=== PATIENT | male | born 1960 | race Caucasian/White ===

== ENCOUNTER 2018-12-04 11:57 | Outpatient (CLI) | payer BC ==
--- NOTE | 2018-12-04 14:56 | CT ---
CT CHEST WITHOUT CONTRAST: Date: 12-04-18 Provided Clinical History: History of COPD. Current smoker. Screening for lung cancer. FINDINGS: No comparison. Vascular calcification including coronary calcium is demonstrated. The heart, pericardium, and great vessels are suboptimally evaluated in the absence of IV contrast material. There is a small amount of likely physiologic paracardial fluid. The lungs are free of significant opacity. The airway appears patient and of normal caliber. There is no evidence for thoracic lymph node enlargement. No pleural fluid or pneumothorax apparent. The visualized portions of the upper abdomen demonstrate a n unremarkable, unenhanced CT appearance. IMPRESSION: 1. No significant pulmonary parenchymal abnormality. 2. Vascular calcification including coronary calcium. 3. Lung RADS category 1 - negative. POS: [facility]
== END 2018-12-04 11:58 | disposition home or self-care (01) ==
LOC: CT 11:57
PROVIDERS: ATTEND Family Medicine
DX: F17.210 Nicotine dependence, cigarettes, uncomplicated (principal); I25.10 Atherosclerotic heart disease of native coronary artery without angina pectoris
CPT/HCPCS: G0297

== ENCOUNTER 2019-12-11 10:11 | Outpatient (CLI) | payer BC ==
--- NOTE | 2019-12-11 12:21 | CT ---
CT CHEST WITHOUT CONTRAST: Date: 12/11/2019 Axial tomograms obtained through chest following low dose screening protocol. Multiplanar reconstruct ions. INDICATION: Nicotine dependence. 45 year history of smoking. COPD. Comparison made to chest CT dated 12/04/2018. FINDINGS: Lungs show mild hyperexpansion. Mild interstitial prominence in the periphery of both lungs appears s table. Interstitial markings slightly more prominent in the posterior lung bases, stable in appearanc e. No pulmonary mass or nodule. No infiltrate or effusion. Mediastinum unremarkable. Review of soft tissues reveals increasing soft tissue density in the anterior mediastinum abutting th e anterior pericardium and the anterior chest wall when compared to the prior exam. This area of dens ity measures 1.5 cm thickness today in the axial plane, where as it previously measured approximately 0.8 cm. It may represent focal area of pericardial thickening, although the increase since prior exa m would warrant follow-up. Recommend repeat noncontrast CT chest in 6 months to assess stability of t his finding. IMPRESSION: Lung-RADS Category S. Other clinically significant findings. Recommend follow-up noncontrast chest CT in 6 months to assess stability of the anterior mediastinal density. POS: [facility]
== END 2019-12-11 10:12 | disposition home or self-care (01) ==
LOC: CT 10:11
PROVIDERS: ATTEND Family Medicine
DX: Z12.2 Encounter for screening for malignant neoplasm of respiratory organs (principal); F17.210 Nicotine dependence, cigarettes, uncomplicated
CPT/HCPCS: G0297

== ENCOUNTER 2020-03-05 08:36 | Day surgery (SDC) | payer BC ==
[2020-03-05 08:58] LABS: Prothrombin Time 13.5 SEC (12.0-14.7)
[2020-03-05 08:59] LABS: PTT 37.9 SEC (22.9-36.1)
[2020-03-05 09:43] VITALS: BP 177/98; TEMP 98.7
[2020-03-05 09:54] VITALS: BMI 23.4
--- NOTE | 2020-03-05 10:40 | CT ---
CT GUIDED RIGHT ILIAC BONE MARROW ASPIRATION AND BIOPSY: CLINICAL HISTORY: Persistent decreased white blood cell count. PROCEDURE: The procedure including the risks and complications were explained to the patient, and informed conse nt was obtained. The patient was placed on the CT scan table in the prone position. Conscious sedation for a total of 30 minutes was performed, administered by the radiology nurse, with the patie nt consistently monitored throughout the duration of the exam in stable condition. Noncontrasted CT images were obtained through the pelvis. An area was marked overlying the RIGHT christopher c bone, and the area was meticulously prepped and draped in usual sterile fashion. The skin and subcutaneous tissues were infiltrated with buffered 1% lidocaine for local anesthesia. After a small skin incision was made, an 11-gauge needle was advanced and positioning was confirmed w ith axial CT images. Approximately 8 milliliters of bone marrow aspirate was obtained. The needle was then further advanced, and a bone marrow biopsy was performed. The needle was removed, and hemost asis was achieved with direct pressure. The patient tolerated the procedure well and without immediate complication. The patient was transported to radiology nurses holding area for further leeanne toring prior to discharge. IMPRESSION: Technically successful percutaneous bone marrow aspiration and biopsy. Pathology results are pending.
== END 2020-03-05 11:30 | disposition home or self-care (01) ==
LOC: CT 08:36
PROVIDERS: ATTEND Internal Medicine Hematology & Oncology
PROC: 07DR3ZX Extraction of Iliac Bone Marrow, Percutaneous Approach, Diagnostic (ICD-10-PCS; principal; 2020-03-05)
PROC: 079T3ZX Drainage of Bone Marrow, Percutaneous Approach, Diagnostic (ICD-10-PCS; principal; 2020-03-05)
DX: D72.818 Other decreased white blood cell count (principal); F17.200 Nicotine dependence, unspecified, uncomplicated; I10 Essential (primary) hypertension; J44.9 Chronic obstructive pulmonary disease, unspecified
CPT/HCPCS: 20225; 36415; 77012; 85097; 85610; 85730; 88184; 88237; 88305; 88311; 88313; 88341; 88342

== ENCOUNTER 2022-05-31 13:08 | Outpatient (CLI) | payer OTHER | END 2022-05-31 13:09 | disposition home or self-care (01) | LOC: BICCT 13:08 | PROVIDERS: ATTEND Family Medicine | DX: Z12.2 Encounter for screening for malignant neoplasm of respiratory organs (principal); F17.210 Nicotine dependence, cigarettes, uncomplicated | CPT/HCPCS: 71271 ==

== ENCOUNTER 2023-05-14 12:10 | Inpatient (IN) | payer SELFPAY ==
[2023-05-14 12:34] LABS: #Monocytes 0.5 thou/uL (0.11-0.59); #Neutrophils 1.2 thou/uL (1.40-6.50); %Basophils 0.3 % (0.0-1.0); %Eosinophils 0.6 % (0.0-10.0); %Lymphocytes 50.1 % (21.0-51.0); Hemoglobin 15.2 g/dL (14.0-18.0); Mean Corpuscular HGB CONC 33.9 g/dL (32.0-36.0); Mean Corpuscular Hemoglobin 26.9 pg (27.0-31.0); Mean Corpuscular Volume 79.3 fl (78.0-98.0); Mean Platelet Volume 9.9 fL (7.4-10.4); Platelet Count 162 10x3/uL (130-400); RBC Distribution Width 14.4 % (11.5-14.5); Red Blood Cell (RBC) Count 5.65 mill/uL (4.70-6.10); White Blood Cell (WBC) Count 3.5 10x3/uL (4.8-10.8)
[2023-05-14 12:55] LABS: Albumin 4.1 g/dL (3.4-4.8); Anion Gap 13 mmol/L (10-20); BUN (Urea Nitrogen) 13 mg/dL (8.4-25.7); Bilirubin, Total 0.8 mg/dL (0.2-1.2); Calc. Creatinine Clearance 0 mL/min (70-130); Calcium 9.4 mg/dL (7.8-10.44); Carbon Dioxide 26 mmol/L (23-31); Chloride 99 mmol/L (98-107); Estimated GFR 81; Glucose 93 mg/dL (80-115); Potassium 4.2 mmol/L (3.5-5.1); Protein, Total 7.1 g/dL (5.8-8.1); Sodium 134 mmol/L (136-145)
[2023-05-14 12:56] LABS: ALT (SGPT) 13 U/L (8-55); AST (SGOT) 12 U/L (5-34); Alkaline Phosphatase 88 U/L (40-110)
[2023-05-14] MEDS ORDERED: DOPamine 400 MG/D5W 250 ML 250 ML ONE (16:21)
[2023-05-14] MEDS ORDERED: Melatonin 3 MG TAB PO PRN (16:21)
[2023-05-14] MEDS ORDERED: Ipratropium/Albuterol 3 ML NEB NEB PRN (16:24)
[2023-05-14] MEDS ORDERED: DOPamine 400 MG/D5W 250 ML 250 ML IVPB SCH ×2 (16:30)
[2023-05-14 16:33] VITALS: BMI 21.7
[2023-05-14] MEDS: Dextrose 5 % And 0.9 % NaCl 1,000 ML IV SCH (16:42)
[2023-05-14 17:23] LABS: Troponin I 0.022 ng/mL (< 0.028)
[2023-05-14 17:50] LABS: Thyroid Stimulating Hormone 1.2211 uIU/mL (0.35-4.94)
[2023-05-14 19:39] LABS: Troponin I Less than 0.010 ng/mL (< 0.028)
[2023-05-14 21:56] LABS: Anion Gap 12 mmol/L (10-20); BUN (Urea Nitrogen) 16 mg/dL (8.4-25.7); Calc. Creatinine Clearance 90 mL/min (70-130); Carbon Dioxide 24 mmol/L (23-31); Chloride 101 mmol/L (98-107); Estimated GFR 101; Glucose 110 mg/dL (80-115); Magnesium 2.1 mg/dL (1.6-2.6); Potassium 4.2 mmol/L (3.5-5.1); Sodium 133 mmol/L (136-145)
[2023-05-15] MEDS: Dextrose 5 % And 0.9 % NaCl 1,000 ML IV SCH (06:07)
[2023-05-15] MEDS: Nicotine 21 MG PATCH TD SCH ×2 (09:00→10:18)
[2023-05-15] MEDS ORDERED: Acetaminophen 325 MG TAB PO PRN (09:03)
[2023-05-15] MEDS: Famotidine/PF 20 mg/2ml Vial SLOW IVP SCH ×2 (10:18→20:02)
[2023-05-15] MEDS ORDERED: Amlodipine 5 MG TAB PO SCH (16:00)
[2023-05-15 17:56] VITALS: BP 172/96
[2023-05-16 03:56] LABS: #Monocytes 0.5 thou/uL (0.11-0.59); #Neutrophils 0.7 thou/uL (1.40-6.50); %Basophils 0.4 % (0.0-1.0); %Eosinophils 0.4 % (0.0-10.0); %Lymphocytes 58.3 % (21.0-51.0); %Monocytes 15.9 % (0.0-10.0); Hemoglobin 15.7 g/dL (14.0-18.0); Mean Corpuscular HGB CONC 33.9 g/dL (32.0-36.0); Mean Corpuscular Hemoglobin 26.9 pg (27.0-31.0); Mean Corpuscular Volume 79.3 fl (78.0-98.0); Mean Platelet Volume 9.9 fL (7.4-10.4); Platelet Count 147 10x3/uL (130-400); RBC Distribution Width 14.1 % (11.5-14.5); Red Blood Cell (RBC) Count 5.84 mill/uL (4.70-6.10); White Blood Cell (WBC) Count 2.8 10x3/uL (4.8-10.8)
[2023-05-16 04:36] LABS: Anion Gap 14 mmol/L (10-20); BUN (Urea Nitrogen) 10 mg/dL (8.4-25.7); Calc. Creatinine Clearance 91 mL/min (70-130); Calcium 9.1 mg/dL (7.8-10.44); Carbon Dioxide 23 mmol/L (23-31); Chloride 97 mmol/L (98-107); Estimated GFR 100; Glucose 88 mg/dL (80-115); Potassium 4.2 mmol/L (3.5-5.1); Sodium 130 mmol/L (136-145)
[2023-05-16 07:40] VITALS: TEMP 98.3
[2023-05-16] MEDS: Nicotine 21 MG PATCH TD SCH (07:46)
[2023-05-16] MEDS: Famotidine/PF 20 mg/2ml Vial SLOW IVP SCH (07:46)
[2023-05-16] MEDS ORDERED: Amlodipine 5 MG TAB PO SCH (09:00)
== END 2023-05-16 10:34 | disposition home or self-care (01) | DRG 309 ==
LOC: ERS 12:10 → IMCU/EMU 14:38
PROVIDERS: ADMIT Internal Medicine; ATTEND Internal Medicine
DX: R00.1 Bradycardia, unspecified (principal); E87.1 Hypo-osmolality and hyponatremia; R55 Syncope and collapse; J44.9 Chronic obstructive pulmonary disease, unspecified; I10 Essential (primary) hypertension; E78.5 Hyperlipidemia, unspecified; F32.A Depression, unspecified; F17.210 Nicotine dependence, cigarettes, uncomplicated; D72.818 Other decreased white blood cell count; M35.9 Systemic involvement of connective tissue, unspecified; Z79.51 Long term (current) use of inhaled steroids; Z82.49 Family history of ischemic heart disease and other diseases of the circulatory system; Z79.899 Other long term (current) drug therapy
CPT/HCPCS: 36415; 70450; 70486; 71045; 72125; 80048; 80053; 83735; 84439; 84443; 84484; 85025; 93005; 93306; 93880; J1265; J1650; J7042; S0028

== ENCOUNTER 2023-08-04 11:51 | Outpatient (CLI) | payer OTHER | END 2023-08-04 11:52 | disposition home or self-care (01) | LOC: BICMAMMO 11:51 | PROVIDERS: ATTEND Internal Medicine Hematology & Oncology | DX: Z13.820 Encounter for screening for osteoporosis (principal); D89.9 Disorder involving the immune mechanism, unspecified; M81.0 Age-related osteoporosis without current pathological fracture; Z79.52 Long term (current) use of systemic steroids | CPT/HCPCS: 77080 ==

== ENCOUNTER 2024-09-06 10:41 | Emergency (ER) | payer OTHER ==
[2024-09-06 12:03] LABS: ALT (SGPT) 35 U/L (8-55); AST (SGOT) 25 U/L (5-34); Albumin 3.6 g/dL (3.4-4.8); Alkaline Phosphatase 114 U/L (40-110); Anion Gap 11 mmol/L (10-20); BUN (Urea Nitrogen) 17 mg/dL (8.4-25.7); Bilirubin, Total 0.7 mg/dL (0.2-1.2); Calc. Creatinine Clearance 0 mL/min (70-130); Calcium 8.8 mg/dL (7.8-10.44); Carbon Dioxide 25 mmol/L (23-31); Chloride 102 mmol/L (98-107); Estimated GFR 99; Globulin 3.3 g/dL (2.4-3.5); Glucose 99 mg/dL (80-115); Lipase 19 U/L (8-78); Magnesium 2.2 mg/dL (1.6-2.6); Potassium 4.5 mmol/L (3.5-5.1); Protein, Total 6.9 g/dL (5.8-8.1); Sodium 133 mmol/L (136-145)
[2024-09-06 12:05] LABS: Troponin I Less than 0.010 ng/mL (< 0.028)
[2024-09-06 12:51] LABS: #Basophils Less than 0.03 10x3/uL (0.0-0.2); #Eosinophils Less than 0.03 10x3/uL (0.0-0.7); %Basophils 0.4 % (0.0-1.0); %Eosinophils 0.2 % (0.0-10.0); %Lymphocytes 42.6 % (21.0-51.0); %Monocytes 7.9 % (0.0-10.0); %Neutrophils 48.5 % (42.0-75.0); Hematocrit 46.4 % (42.0-52.0); Hemoglobin 14.9 g/dL (14.0-18.0); Mean Corpuscular HGB CONC 32.1 g/dL (32.0-36.0); Mean Corpuscular Hemoglobin 26.9 pg (27.0-31.0); Mean Corpuscular Volume 83.8 fL (78.0-98.0); Mean Platelet Volume 9.8 fL (7.4-10.4); Platelet Count 120 10x3/uL (130-400); RBC Distribution Width 14.9 % (11.5-14.5); Red Blood Cell (RBC) Count 5.54 mill/uL (4.70-6.10)
[2024-09-06 13:31] LABS: Microcytosis SLIGHT = 6-15 cells HPF (0-5); Ovalocytes SLIGHT = 2-5 cells HPF (0-1); Platelet Adequacy Comment Platelets Decreased
[2024-09-06 14:45] LABS: Bacteria/HPF 2+ HPF (None Seen); Bilirubin Negative (Negative); Blood, Urine 2+ (Negative); CAUTI Indications for Culture Fever or rigors; Clarity Clear (Clear); Glucose, Urine (Dipstick) Normal (Negative); Ketone, Urine Negative (Negative); Leukocyte 500 Leu/uL (Negative); Nitrite 2+ (Negative); Protein, Urine (Dipstick) Negative (Neg-Trace); RBC/HPF 21-50 HPF (0-3); Squamous Epithelial None Seen HPF (0-3); Urobilinogen Normal mg/dL (Less than 2)
[2024-09-06 14:46] LABS: Specific Gravity, Urine 1.057 (1.002-1.036); WBC/HPF 21-50 HPF (0-3)
[2024-09-06 14:56] LABS: Urine Culture Reflex Yes Yes
== END 2024-09-06 15:38 | disposition home or self-care (01) ==
LOC: ERS 10:41
DX: N39.0 Urinary tract infection, site not specified (principal); R53.83 Other fatigue; I10 Essential (primary) hypertension; J44.9 Chronic obstructive pulmonary disease, unspecified; F17.210 Nicotine dependence, cigarettes, uncomplicated
CPT/HCPCS: 71260; 74177; 80053; 81001; 83605; 83690; 83735; 83880; 84484; 85025; 87040; 87077; 87086; 87186; 93005

== ENCOUNTER 2024-10-02 22:28 | Inpatient (IN) | payer OTHER ==
[2024-10-02] MEDS ORDERED: Ondansetron PF 4 MG/2 ML Vial IVP PRN (23:47)
[2024-10-03 00:02] VITALS: BMI 18.8
[2024-10-03] MEDS ORDERED: Ipratropium/Albuterol 3 ML NEB EZPAP PRN (00:25)
[2024-10-03] MEDS: Nicotine 21 MG PATCH TD SCH (00:49)
[2024-10-03] MEDS: Gabapentin 300 MG CAP PO SCH ×2 (02:12→09:30)
[2024-10-03] MEDS: traZODone HCl 50 MG TAB PO SCH ×2 (02:13→21:18)
[2024-10-03 04:52] LABS: Hematocrit 34.7 % (42.0-52.0); Hemoglobin 11.6 g/dL (14.0-18.0); Mean Corpuscular HGB CONC 33.4 g/dL (32.0-36.0); Mean Corpuscular Hemoglobin 26.4 pg (27.0-31.0); Mean Corpuscular Volume 78.9 fL (78.0-98.0); Mean Platelet Volume 9.4 fL (7.4-10.4); Platelet Count 146 10x3/uL (130-400)
[2024-10-03 05:07] LABS: Anion Gap 10 mmol/L (10-20); BUN (Urea Nitrogen) 16 mg/dL (8.4-25.7); Calc. Creatinine Clearance 94 mL/min (70-130); Carbon Dioxide 24 mmol/L (23-31); Chloride 103 mmol/L (98-107); Estimated GFR 106; Glucose 118 mg/dL (80-115); Sodium 133 mmol/L (136-145)
[2024-10-03 05:36] LABS: Band 3 % (5-11); Eosinophils 3 % (0-10); Lymphocytes 59 % (21-51); Monocytes 18 % (0-10); Neutrophil 9 % (42-75); Ovalocytes SLIGHT = 2-5 cells HPF (0-1); Platelet Adequacy Comment Platelets Normal; Polychromasia MODERATE = 3-4 cells HPF (0-2); Reactive Lymphocytes 6 % (0-10)
[2024-10-03] MEDS: BuPROPion XL 150 MG ER.TAB PO SCH (09:30)
[2024-10-03] MEDS: Docusate 100 MG CAP PO SCH (09:30)
[2024-10-03] MEDS: Enoxaparin 30 MG (0.3 mL) SYRINGE SC SCH (09:30)
[2024-10-03] MEDS: Escitalopram Oxalate 20 mg Tablet PO SCH (09:30)
[2024-10-03] MEDS: FLU (Fluarix Triv) TS24-25(6MOS UP)/PF 45 MCG/0.5 ML Syringe IM ONE (11:34)
[2024-10-03] MEDS ORDERED: Nicotine 14 MG PATCH TD PRN (11:43)
[2024-10-03] MEDS: Acetaminophen 325 MG TAB PO PRN (15:26)
[2024-10-03] MEDS: Multivit, Therapeutic 1 TAB PO SCH (21:18)
[2024-10-03] MEDS: Cyanocobalamin (Vitamin B-12) 1,000 MCG TAB PO SCH (21:18)
[2024-10-03] MEDS: Folic Acid 1 MG TAB PO SCH (21:18)
[2024-10-03] MEDS: Senokot S 8.6-50 MG TAB PO SCH (21:19)
[2024-10-03] MEDS: cefTRIAXone\\ROCEPHIN 2 GM in Sodium Chloride 0.9% 100 ML IVPB SCH (21:49)
[2024-10-04 04:13] LABS: Hematocrit 39.3 % (42.0-52.0); Hemoglobin 13.1 g/dL (14.0-18.0); Mean Corpuscular HGB CONC 33.3 g/dL (32.0-36.0); Mean Corpuscular Hemoglobin 25.9 pg (27.0-31.0); Mean Corpuscular Volume 77.8 fL (78.0-98.0); Mean Platelet Volume 9.1 fL (7.4-10.4); Platelet Count 161 10x3/uL (130-400); RBC Distribution Width 14.8 % (11.5-14.5); Red Blood Cell (RBC) Count 5.05 mill/uL (4.70-6.10)
[2024-10-04 04:42] LABS: Anion Gap 14 mmol/L (10-20); BUN (Urea Nitrogen) 18 mg/dL (8.4-25.7); Calc. Creatinine Clearance 96 mL/min (70-130); Calcium 8.7 mg/dL (7.8-10.44); Carbon Dioxide 22 mmol/L (23-31); Chloride 98 mmol/L (98-107); Estimated GFR 107; Glucose 94 mg/dL (80-115); Magnesium 1.9 mg/dL (1.6-2.6); Potassium 4.6 mmol/L (3.5-5.1); Sodium 129 mmol/L (136-145)
[2024-10-04 06:36] LABS: Anisocytosis SLIGHT = 6-15 cells HPF (0-5); Band 1 % (5-11); Lymphocytes 65 % (21-51); Macrocytosis SLIGHT = 6-15 cells HPF (0-5); Monocytes 17 % (0-10); Neutrophil 8 % (42-75); Platelet Adequacy Comment Platelets Normal; Reactive Lymphocytes 9 % (0-10)
[2024-10-04] MEDS: Tamsulosin HCl 0.4 MG CAP PO SCH (09:15)
[2024-10-04] MEDS: Magnesium 2 GM/50 ML(in water) 2 GM in Premix 1 BAG IVPB SCH (09:16)
[2024-10-04] MEDS: Finasteride 5 MG TAB PO SCH (09:16)
[2024-10-04] MEDS: Ipratropium/Albuterol 3 ML NEB EZPAP SCH (13:54)
[2024-10-04] MEDS: Thiamine 100 MG TAB PO SCH (21:13)
[2024-10-04] MEDS: pyridOXINE 50 MG (B6) TAB PO SCH (21:13)
[2024-10-04] MEDS: hydrOXYzine 25 MG TAB PO PRN (21:16)
[2024-10-04] MEDS: Senokot S 8.6-50 MG TAB PO SCH (21:16)
[2024-10-05 04:13] LABS: Hematocrit 39.6 % (42.0-52.0); Hemoglobin 13.2 g/dL (14.0-18.0); Mean Corpuscular HGB CONC 33.3 g/dL (32.0-36.0); Mean Corpuscular Hemoglobin 26.2 pg (27.0-31.0); Mean Corpuscular Volume 78.7 fL (78.0-98.0); Mean Platelet Volume 9.1 fL (7.4-10.4); Platelet Count 163 10x3/uL (130-400); RBC Distribution Width 14.8 % (11.5-14.5); Red Blood Cell (RBC) Count 5.03 mill/uL (4.70-6.10)
[2024-10-05 04:28] LABS: Anion Gap 12 mmol/L (10-20); BUN (Urea Nitrogen) 18 mg/dL (8.4-25.7); Calc. Creatinine Clearance 86 mL/min (70-130); Calcium 8.5 mg/dL (7.8-10.44); Carbon Dioxide 22 mmol/L (23-31); Chloride 97 mmol/L (98-107); Estimated GFR 104; Glucose 108 mg/dL (80-115); Potassium 4.6 mmol/L (3.5-5.1); Sodium 126 mmol/L (136-145)
[2024-10-05 04:50] LABS: Band 1 % (5-11); Eosinophils 1 % (0-10); Large Platelets 5.9 % (0-5); Lymphocytes 59 % (21-51); Monocytes 22 % (0-10); Neutrophil 10 % (42-75); Platelet Adequacy Comment Platelets Normal; Reactive Lymphocytes 7 % (0-10)
[2024-10-05] MEDS: Cholecalciferol 1,000 UNITS (25 MCG) TAB PO SCH (08:12)
[2024-10-05 19:28] LABS: Potassium 4.9 mmol/L (3.5-5.1); Sodium 127 mmol/L (136-145)
[2024-10-05] MEDS ORDERED: Sodium Chloride 0.9% 500 ML IV SCH (21:00)
[2024-10-06 04:13] LABS: Hematocrit 40.8 % (42.0-52.0); Hemoglobin 13.7 g/dL (14.0-18.0); Mean Corpuscular HGB CONC 33.6 g/dL (32.0-36.0); Mean Corpuscular Volume 77.4 fL (78.0-98.0); Mean Platelet Volume 8.7 fL (7.4-10.4); Platelet Count 166 10x3/uL (130-400); RBC Distribution Width 14.6 % (11.5-14.5); Red Blood Cell (RBC) Count 5.27 mill/uL (4.70-6.10)
[2024-10-06 04:19] LABS: Anion Gap 11 mmol/L (10-20); BUN (Urea Nitrogen) 18 mg/dL (8.4-25.7); Calc. Creatinine Clearance 96 mL/min (70-130); Calcium 8.7 mg/dL (7.8-10.44); Carbon Dioxide 24 mmol/L (23-31); Chloride 97 mmol/L (98-107); Estimated GFR 107; Glucose 111 mg/dL (80-115); Potassium 4.2 mmol/L (3.5-5.1); Sodium 128 mmol/L (136-145)
[2024-10-06 04:34] LABS: Band 1 % (5-11); Eosinophils 2 % (0-10); Lymphocytes 61 % (21-51); Microcytosis SLIGHT = 6-15 cells HPF (0-5); Monocytes 24 % (0-10); Neutrophil 1 % (42-75); Platelet Adequacy Comment Platelets Normal; Polychromasia SLIGHT = 2-3 cells HPF (0-2); Reactive Lymphocytes 11 % (0-10)
[2024-10-06 10:59] LABS: Critical Call Chem-Lactate NUR.LL
[2024-10-06] MEDS: Tolvaptan 15 MG TAB PO SCH (13:06)
[2024-10-06 20:15] LABS: Potassium 4.8 mmol/L (3.5-5.1); Sodium 129 mmol/L (136-145)
[2024-10-07 04:10] LABS: Hematocrit 39.7 % (42.0-52.0); Hemoglobin 13.4 g/dL (14.0-18.0); Mean Corpuscular HGB CONC 33.8 g/dL (32.0-36.0); Mean Corpuscular Hemoglobin 26.3 pg (27.0-31.0); Mean Corpuscular Volume 77.8 fL (78.0-98.0); Mean Platelet Volume 9.3 fL (7.4-10.4); Platelet Count 186 10x3/uL (130-400); RBC Distribution Width 14.7 % (11.5-14.5)
[2024-10-07 04:19] LABS: ALT (SGPT) 30 U/L (8-55); AST (SGOT) 34 U/L (5-34); Albumin 2.6 g/dL (3.4-4.8); Alkaline Phosphatase 99 U/L (40-110); Bilirubin, Direct 0.1 mg/dL (0.1-0.3); Bilirubin, Total 0.3 mg/dL (0.2-1.2); Protein, Total 6.7 g/dL (5.8-8.1)
[2024-10-07 04:20] LABS: Anion Gap 13 mmol/L (10-20); BUN (Urea Nitrogen) 16 mg/dL (8.4-25.7); Calc. Creatinine Clearance 86 mL/min (70-130); Carbon Dioxide 23 mmol/L (23-31); Chloride 97 mmol/L (98-107); Estimated GFR 104; Glucose 123 mg/dL (80-115); Potassium 4.4 mmol/L (3.5-5.1); Sodium 129 mmol/L (136-145)
[2024-10-07 04:54] LABS: Anisocytosis SLIGHT = 6-15 cells HPF (0-5); Band 1 % (5-11); Elliptocytes SLIGHT = 2-5 cells HPF (0-1); Hypochromia SLIGHT = 6-15 cells HPF (0-5); Lymphocytes 35 % (21-51); Monocytes 20 % (0-10); Neutrophil 4 % (42-75); Platelet Adequacy Comment Platelets Normal; Polychromasia SLIGHT = 2-3 cells HPF (0-2); Reactive Lymphocytes 39 % (0-10)
[2024-10-07] MEDS ORDERED: Ipratropium/Albuterol 3 ML NEB NEB PRN (11:04)
[2024-10-07] MEDS ORDERED: Ipratropium/Albuterol 3 ML NEB EZPAP SCH (12:30)
[2024-10-07] MEDS: Ipratropium/Albuterol 3 ML NEB NEB SCH (13:30)
[2024-10-07] MEDS ORDERED: Ipratropium/Albuterol 3 ML NEB NEB SCH (14:30)
[2024-10-07] MEDS: Tolvaptan 15 MG TAB PO SCH (15:29)
[2024-10-08 04:57] LABS: Hematocrit 38.7 % (42.0-52.0); Hemoglobin 12.7 g/dL (14.0-18.0); Mean Corpuscular HGB CONC 32.8 g/dL (32.0-36.0); Mean Corpuscular Hemoglobin 25.7 pg (27.0-31.0); Mean Corpuscular Volume 78.2 fL (78.0-98.0); Mean Platelet Volume 9.5 fL (7.4-10.4); Platelet Count 179 10x3/uL (130-400); RBC Distribution Width 14.7 % (11.5-14.5); Red Blood Cell (RBC) Count 4.95 mill/uL (4.70-6.10)
[2024-10-08 05:07] LABS: Anion Gap 11 mmol/L (10-20); BUN (Urea Nitrogen) 19 mg/dL (8.4-25.7); Calc. Creatinine Clearance 93 mL/min (70-130); Calcium 8.9 mg/dL (7.8-10.44); Carbon Dioxide 25 mmol/L (23-31); Chloride 95 mmol/L (98-107); Estimated GFR 106; Glucose 103 mg/dL (80-115); Magnesium 1.9 mg/dL (1.6-2.6); Potassium 4.4 mmol/L (3.5-5.1); Sodium 127 mmol/L (136-145)
[2024-10-08 05:24] LABS: Band 4 % (5-11); Eosinophils 2 % (0-10); Lymphocytes 44 % (21-51); Monocytes 18 % (0-10); Neutrophil 4 % (42-75); Platelet Adequacy Comment Platelets Normal; Polychromasia SLIGHT = 2-3 cells HPF (0-2); Reactive Lymphocytes 28 % (0-10)
[2024-10-08] MEDS: Sodium Chloride 1 GM TAB PO SCH (08:50)
[2024-10-08] MEDS: Magnesium 2 GM/50 ML(in water) 2 GM in Premix 1 BAG IVPB SCH (12:13)
[2024-10-08] MEDS: dilTIAZem 30 MG TAB PO SCH ×2 (17:45→21:31)
[2024-10-09 04:12] LABS: Anion Gap 12 mmol/L (10-20); BUN (Urea Nitrogen) 21 mg/dL (8.4-25.7); Calc. Creatinine Clearance 92 mL/min (70-130); Calcium 8.6 mg/dL (7.8-10.44); Carbon Dioxide 25 mmol/L (23-31); Chloride 99 mmol/L (98-107); Estimated GFR 107; Glucose 101 mg/dL (80-115); Potassium 4.2 mmol/L (3.5-5.1); Sodium 132 mmol/L (136-145)
[2024-10-09 04:32] LABS: Large Platelets 7.8 % (0-5); Lymphocytes 63 % (21-51); Microcytosis SLIGHT = 6-15 cells HPF (0-5); Monocytes 19 % (0-10); Neutrophil 3 % (42-75); Platelet Adequacy Comment Platelets Normal; Polychromasia MODERATE = 3-4 cells HPF (0-2); Reactive Lymphocytes 16 % (0-10)
[2024-10-09 04:36] LABS: Hematocrit 38.4 % (42.0-52.0); Hemoglobin 12.7 g/dL (14.0-18.0); Mean Corpuscular HGB CONC 33.1 g/dL (32.0-36.0); Mean Corpuscular Volume 78.7 fL (78.0-98.0); Mean Platelet Volume 8.7 fL (7.4-10.4); Platelet Count 158 10x3/uL (130-400); RBC Distribution Width 14.7 % (11.5-14.5); Red Blood Cell (RBC) Count 4.88 mill/uL (4.70-6.10)
[2024-10-09] MEDS ORDERED: Piperacillin/Tazobactam 3.375 GM in Sodium Chloride 0.9% 100 ML IVPB SCH (13:00)
[2024-10-09] MEDS: Morphine 2 MG/ML VIAL SLOW IVP SCH (13:03)
[2024-10-09 14:44] LABS: PTT 36.5 sec (22.9-36.1)
[2024-10-10] MEDS ORDERED: Piperacillin/Tazobactam 3.375 GM in Sodium Chloride 0.9% 100 ML IVPB SCH (06:00)
[2024-10-10] MEDS ORDERED: SUGAMMADEX SODIUM 200 MG/2 ML VIAL ONE (09:11)
[2024-10-10] MEDS ORDERED: Rocuronium Bromide 10 MG/ML (10ML VIAL) ONE (09:11)
[2024-10-10] MEDS ORDERED: PHENYLEPHRINE-NS 100 MCG/ML 10 ML SYRINGE ONE (09:11)
[2024-10-10] MEDS ORDERED: Metoprolol Tartrate 5 MG (5 mL) VIAL ONE (09:11)
[2024-10-10] MEDS ORDERED: Hyoscyamine SL 0.125 MG TAB ONE ×2 (09:11→20:23)
[2024-10-10] MEDS ORDERED: Ondansetron PF 4 MG/2 ML Vial ONE (09:11)
[2024-10-10] MEDS ORDERED: Piperacillin/Tazobactam 3.375 GM VIAL ONE (09:11)
[2024-10-10] MEDS ORDERED: PROPOFOL 200 MG/20 ML VIAL ONE (09:11)
[2024-10-10] MEDS ORDERED: fentaNYL PF 100 MCG/2 ML SYRINGE ONE ×2 (09:11)
[2024-10-10] MEDS ORDERED: Lidocaine 2% PF 5 ML VIAL ONE (09:11)
[2024-10-10] MEDS ORDERED: Dexamethasone 4 mg/ml Vial ONE (09:11)
[2024-10-10] MEDS ORDERED: Docusate 100 MG CAP ONE (20:23)
[2024-10-10] MEDS ORDERED: dilTIAZem 30 MG TAB ONE (20:23)
[2024-10-10] MEDS ORDERED: Sodium Chloride 1 GM TAB ONE (20:23)
[2024-10-10] MEDS ORDERED: Multivit, Therapeutic 1 TAB ONE (20:23)
[2024-10-10] MEDS ORDERED: Folic Acid 1 MG TAB ONE (20:23)
[2024-10-10] MEDS ORDERED: Famotidine/PF 20 mg/2ml Vial ONE (20:23)
[2024-10-10] MEDS ORDERED: Thiamine 100 MG TAB ONE (20:23)
[2024-10-10] MEDS ORDERED: pyridOXINE 50 MG (B6) TAB ONE (20:23)
[2024-10-10] MEDS ORDERED: traZODone HCl 50 MG TAB ONE (20:23)
[2024-10-10] MEDS ORDERED: Cyanocobalamin (Vitamin B-12) 1,000 MCG TAB ONE (20:23)
[2024-10-10] MEDS ORDERED: Phenazopyridine HCl 100 MG TAB ONE (20:23)
[2024-10-10] MEDS ORDERED: Gabapentin 300 MG CAP ONE (20:23)
[2024-10-10] MEDS ORDERED: cefTRIAXone (ROCEPHIN) 2 GM VIAL ONE (23:00)
[2024-10-11] MEDS ORDERED: Senokot S 8.6-50 MG TAB ONE ×2 (09:30→20:10)
[2024-10-11] MEDS ORDERED: dilTIAZem 30 MG TAB ONE ×2 (09:30→20:10)
[2024-10-11] MEDS ORDERED: Gabapentin 300 MG CAP ONE ×2 (09:30→20:10)
[2024-10-11] MEDS ORDERED: Finasteride 5 MG TAB ONE (09:30)
[2024-10-11] MEDS ORDERED: Sodium Chloride 1 GM TAB ONE ×2 (09:30→20:10)
[2024-10-11] MEDS ORDERED: Tamsulosin HCl 0.4 MG CAP ONE (09:30)
[2024-10-11] MEDS ORDERED: Cholecalciferol 1,000 UNITS (25 MCG) TAB ONE ×2 (09:30→20:10)
[2024-10-11] MEDS: Docusate 100 MG CAP ONE ×3 (20:08→20:10)
[2024-10-11] MEDS: Famotidine/PF 20 mg/2ml Vial ONE ×3 (20:08→20:10)
[2024-10-11] MEDS: Phenazopyridine HCl 100 MG TAB ONE ×4 (20:09→20:10)
[2024-10-11] MEDS: Hyoscyamine SL 0.125 MG TAB ONE ×4 (20:09→21:30)
[2024-10-11] MEDS: Polyethylene Glycol 3350 17 GM Packet ONE (20:10)
[2024-10-11] MEDS ORDERED: pyridOXINE 50 MG (B6) TAB ONE (20:10)
[2024-10-11] MEDS ORDERED: Multivit, Therapeutic 1 TAB ONE (20:10)
[2024-10-11] MEDS ORDERED: Cyanocobalamin (Vitamin B-12) 1,000 MCG TAB ONE (20:10)
[2024-10-11] MEDS ORDERED: Folic Acid 1 MG TAB ONE (20:10)
[2024-10-11] MEDS ORDERED: Thiamine 100 MG TAB ONE (20:10)
[2024-10-11] MEDS ORDERED: traZODone HCl 50 MG TAB ONE (20:10)
[2024-10-12 08:38] LABS: Hematocrit 33.3 % (42.0-52.0); Hemoglobin 10.7 g/dL (14.0-18.0); Mean Corpuscular HGB CONC 32.1 g/dL (32.0-36.0); Mean Corpuscular Hemoglobin 25.7 pg (27.0-31.0); Mean Platelet Volume 8.8 fL (7.4-10.4); Platelet Count 192 10x3/uL (130-400); RBC Distribution Width 14.6 % (11.5-14.5); Red Blood Cell (RBC) Count 4.16 mill/uL (4.70-6.10)
[2024-10-12 09:01] LABS: Anion Gap 10 mmol/L (10-20); BUN (Urea Nitrogen) 15 mg/dL (8.4-25.7); Calc. Creatinine Clearance 101 mL/min (70-130); Calcium 8.1 mg/dL (7.8-10.44); Carbon Dioxide 23 mmol/L (23-31); Chloride 99 mmol/L (98-107); Estimated GFR 110; Glucose 91 mg/dL (80-115); Magnesium 1.8 mg/dL (1.6-2.6); Potassium 4.2 mmol/L (3.5-5.1); Sodium 128 mmol/L (136-145)
[2024-10-12 09:27] LABS: Band 2 % (5-11); Eosinophils 1 % (0-10); Large Platelets 5.8 % (0-5); Lymphocytes 64 % (21-51); Metamyelocyte 1 % (0-0); Monocytes 19 % (0-10); Neutrophil 9 % (42-75); Ovalocytes SLIGHT = 2-5 cells HPF (0-1); Plasma Cells 1 % (0-0); Platelet Adequacy Comment Platelets Normal; Polychromasia SLIGHT = 2-3 cells HPF (0-2); Reactive Lymphocytes 2 % (0-10)
[2024-10-12] MEDS: Famotidine/PF 20 mg/2ml Vial ONE ×2 (09:31→20:42)
[2024-10-12] MEDS: Polyethylene Glycol 3350 17 GM Packet ONE (09:31)
[2024-10-12] MEDS: Phenazopyridine HCl 100 MG TAB ONE ×3 (09:31→20:42)
[2024-10-12] MEDS: Docusate 100 MG CAP ONE ×2 (09:32→20:41)
[2024-10-12] MEDS: Hyoscyamine SL 0.125 MG TAB ONE (13:51)
[2024-10-12] MEDS: Magnesium 2 GM/50 ML(in water) 2 GM in Premix 1 BAG IVPB SCH (13:52)
[2024-10-13 04:23] LABS: Anion Gap 12 mmol/L (10-20); BUN (Urea Nitrogen) 16 mg/dL (8.4-25.7); Calc. Creatinine Clearance 107 mL/min (70-130); Calcium 8.2 mg/dL (7.8-10.44); Carbon Dioxide 23 mmol/L (23-31); Chloride 100 mmol/L (98-107); Estimated GFR 111; Glucose 95 mg/dL (80-115); Potassium 4.2 mmol/L (3.5-5.1); Sodium 131 mmol/L (136-145)
[2024-10-13 04:31] LABS: Hematocrit 33.2 % (42.0-52.0); Mean Corpuscular HGB CONC 33.1 g/dL (32.0-36.0); Mean Corpuscular Hemoglobin 26.2 pg (27.0-31.0); Mean Platelet Volume 8.9 fL (7.4-10.4); Platelet Count 188 10x3/uL (130-400); RBC Distribution Width 14.7 % (11.5-14.5)
[2024-10-13 06:56] LABS: Band 7 % (5-11); Eosinophils 4 % (0-10); Large Platelets 2.8 % (0-5); Lymphocytes 57 % (21-51); Monocytes 15 % (0-10); Neutrophil 10 % (42-75); Nucleated RBC (Manual Ct) 2 % (0); Platelet Adequacy Comment Platelets Normal; Polychromasia SLIGHT = 2-3 cells HPF (0-2); Reactive Lymphocytes 7 % (0-10); Smudge Cells 15.9 %
[2024-10-13] MEDS: Polyethylene Glycol 3350 17 GM Packet ONE (10:34)
[2024-10-13] MEDS: Docusate 100 MG CAP ONE ×2 (10:34→21:11)
[2024-10-13] MEDS: Phenazopyridine HCl 100 MG TAB ONE ×3 (10:35→21:11)
[2024-10-13] MEDS: Famotidine/PF 20 mg/2ml Vial ONE ×2 (10:35→21:11)
[2024-10-13] MEDS: Hyoscyamine SL 0.125 MG TAB ONE (14:18)
[2024-10-13] MEDS: Doxycycline 100 MG CAP PO SCH (20:36)
[2024-10-14] MEDS: Docusate 100 MG CAP ONE ×2 (08:29→20:24)
[2024-10-14] MEDS: Polyethylene Glycol 3350 17 GM Packet ONE (08:30)
[2024-10-14] MEDS: Phenazopyridine HCl 100 MG TAB ONE ×2 (08:30→20:24)
[2024-10-14] MEDS: Famotidine/PF 20 mg/2ml Vial ONE ×2 (08:30→20:24)
[2024-10-14] MEDS ORDERED: Ipratropium/Albuterol 3 ML NEB NEB PRN (11:02)
[2024-10-14 11:38] LABS: Hematocrit 34.5 % (42.0-52.0); Hemoglobin 11.1 g/dL (14.0-18.0); Mean Corpuscular HGB CONC 32.2 g/dL (32.0-36.0); Mean Corpuscular Hemoglobin 25.8 pg (27.0-31.0); Mean Corpuscular Volume 80.2 fL (78.0-98.0); Mean Platelet Volume 8.9 fL (7.4-10.4); Platelet Count 208 10x3/uL (130-400); RBC Distribution Width 14.9 % (11.5-14.5)
[2024-10-14 11:51] LABS: ALT (SGPT) 71 U/L (8-55); AST (SGOT) 62 U/L (5-34); Albumin 2.1 g/dL (3.4-4.8); Alkaline Phosphatase 147 U/L (40-110); Anion Gap 13 mmol/L (10-20); BUN (Urea Nitrogen) 21 mg/dL (8.4-25.7); Bilirubin, Total 0.3 mg/dL (0.2-1.2); Calc. Creatinine Clearance 108 mL/min (70-130); Calcium 8.4 mg/dL (7.8-10.44); Carbon Dioxide 24 mmol/L (23-31); Chloride 99 mmol/L (98-107); Estimated GFR 112; Globulin 4.1 g/dL (2.4-3.5); Glucose 103 mg/dL (80-115); Magnesium 1.9 mg/dL (1.6-2.6); Potassium 4.7 mmol/L (3.5-5.1); Protein, Total 6.2 g/dL (5.8-8.1); Sodium 131 mmol/L (136-145)
[2024-10-14 12:32] LABS: Band 5 % (5-11); Eosinophils 1 % (0-10); Large Platelets 8.7 % (0-5); Lymphocytes 62 % (21-51); Monocytes 16 % (0-10); Neutrophil 16 % (42-75); Platelet Adequacy Comment Platelets Normal; Polychromasia SLIGHT = 2-3 cells HPF (0-2); Reactive Lymphocytes 1 % (0-10)
[2024-10-14] MEDS: Cefepime 2 GM in Sodium Chloride 0.9% 100 ML IVPB SCH (15:13)
[2024-10-14] MEDS: Sodium Chloride 1 GM TAB PO SCH (15:14)
[2024-10-14 15:34] LABS: Influenza A by NAA Not Detected (NotDetected); Influenza B by NAA Not Detected (NotDetected); RSV by NAA Not Detected (NotDetected); SARS-CoV-2 NAA Rapid Test Not Detected (NotDetected)
[2024-10-15 05:53] LABS: Hematocrit 35.3 % (42.0-52.0); Hemoglobin 11.5 g/dL (14.0-18.0); Mean Corpuscular HGB CONC 32.6 g/dL (32.0-36.0); Mean Corpuscular Hemoglobin 25.5 pg (27.0-31.0); Mean Corpuscular Volume 78.3 fL (78.0-98.0); Mean Platelet Volume 9.3 fL (7.4-10.4); Platelet Count 231 10x3/uL (130-400); RBC Distribution Width 14.7 % (11.5-14.5); Red Blood Cell (RBC) Count 4.51 mill/uL (4.70-6.10)
[2024-10-15 05:58] LABS: ALT (SGPT) 63 U/L (8-55); AST (SGOT) 48 U/L (5-34); Albumin 2.2 g/dL (3.4-4.8); Alkaline Phosphatase 150 U/L (40-110); Anion Gap 11 mmol/L (10-20); BUN (Urea Nitrogen) 19 mg/dL (8.4-25.7); Bilirubin, Direct 0.2 mg/dL (0.1-0.3); Bilirubin, Total 0.4 mg/dL (0.2-1.2); Calc. Creatinine Clearance 108 mL/min (70-130); Calcium 8.3 mg/dL (7.8-10.44); Carbon Dioxide 23 mmol/L (23-31); Chloride 99 mmol/L (98-107); Estimated GFR 112; Glucose 101 mg/dL (80-115); Lipase 23 U/L (8-78); Magnesium 1.9 mg/dL (1.6-2.6); Potassium 4.4 mmol/L (3.5-5.1); Protein, Total 6.2 g/dL (5.8-8.1); Sodium 129 mmol/L (136-145)
[2024-10-15 06:59] LABS: Anisocytosis SLIGHT = 6-15 cells HPF (0-5); Band 10 % (5-11); Lymphocytes 47 % (21-51); Macrocytosis SLIGHT = 6-15 cells HPF (0-5); Monocytes 25 % (0-10); Neutrophil 6 % (42-75); Platelet Adequacy Comment Platelets Normal; Polychromasia SLIGHT = 2-3 cells HPF (0-2); Reactive Lymphocytes 12 % (0-10)
[2024-10-15] MEDS: TOLVAPTAN 30 MG TAB PO SCH (11:01)
[2024-10-15] MEDS: Phenazopyridine HCl 100 MG TAB ONE (14:47)
[2024-10-15 19:26] LABS: Anion Gap 11 mmol/L (10-20); BUN (Urea Nitrogen) 17 mg/dL (8.4-25.7); Calc. Creatinine Clearance 94 mL/min (70-130); Calcium 8.8 mg/dL (7.8-10.44); Carbon Dioxide 24 mmol/L (23-31); Chloride 100 mmol/L (98-107); Estimated GFR 107; Glucose 233 mg/dL (80-115); Sodium 131 mmol/L (136-145)
[2024-10-16 06:28] LABS: Hematocrit 37.7 % (42.0-52.0); Hemoglobin 12.2 g/dL (14.0-18.0); Mean Corpuscular HGB CONC 32.4 g/dL (32.0-36.0); Mean Corpuscular Hemoglobin 25.6 pg (27.0-31.0); Mean Corpuscular Volume 79.2 fL (78.0-98.0); Mean Platelet Volume 8.9 fL (7.4-10.4); Platelet Count 234 10x3/uL (130-400); RBC Distribution Width 14.6 % (11.5-14.5); Red Blood Cell (RBC) Count 4.76 mill/uL (4.70-6.10)
[2024-10-16 06:42] LABS: ALT (SGPT) 60 U/L (8-55); AST (SGOT) 48 U/L (5-34); Albumin 2.3 g/dL (3.4-4.8); Alkaline Phosphatase 144 U/L (40-110); Anion Gap 11 mmol/L (10-20); BUN (Urea Nitrogen) 16 mg/dL (8.4-25.7); Bilirubin, Total 0.4 mg/dL (0.2-1.2); Calc. Creatinine Clearance 94 mL/min (70-130); Calcium 9.1 mg/dL (7.8-10.44); Carbon Dioxide 23 mmol/L (23-31); Chloride 99 mmol/L (98-107); Estimated GFR 107; Globulin 4.3 g/dL (2.4-3.5); Glucose 107 mg/dL (80-115); Magnesium 2.1 mg/dL (1.6-2.6); Potassium 4.2 mmol/L (3.5-5.1); Protein, Total 6.6 g/dL (5.8-8.1); Sodium 129 mmol/L (136-145)
[2024-10-16 08:21] LABS: Band 2 % (5-11); Eosinophils 1 % (0-10); Large Platelets 3.9 % (0-5); Lymphocytes 51 % (21-51); Microcytosis SLIGHT = 6-15 cells HPF (0-5); Monocytes 27 % (0-10); Neutrophil 17 % (42-75); Platelet Adequacy Comment Platelets Normal; Polychromasia SLIGHT = 2-3 cells HPF (0-2); Reactive Lymphocytes 2 % (0-10)
[2024-10-16] MEDS: Famotidine/PF 20 mg/2ml Vial ONE (11:06)
[2024-10-16] MEDS: Phenazopyridine HCl 100 MG TAB ONE (11:06)
[2024-10-16] MEDS: Docusate 100 MG CAP ONE (11:06)
[2024-10-16] MEDS: Polyethylene Glycol 3350 17 GM Packet ONE (11:07)
[2024-10-16 12:41] VITALS: BMI 18.2
[2024-10-16] MEDS: Sodium Chloride 0.9% 1,000 ML IV SCH (15:00)
[2024-10-16 19:03] LABS: Anion Gap 8 mmol/L (10-20); BUN (Urea Nitrogen) 20 mg/dL (8.4-25.7); Calc. Creatinine Clearance 100 mL/min (70-130); Calcium 8.3 mg/dL (7.8-10.44); Carbon Dioxide 25 mmol/L (23-31); Chloride 97 mmol/L (98-107); Estimated GFR 110; Glucose 128 mg/dL (80-115); Potassium 4.3 mmol/L (3.5-5.1); Sodium 126 mmol/L (136-145)
[2024-10-16] MEDS: Mirtazapine 15 MG TAB PO SCH (20:43)
[2024-10-17] MEDS: TOLVAPTAN 30 MG TAB PO SCH (00:45)
[2024-10-17 06:10] LABS: ALT (SGPT) 62 U/L (8-55); AST (SGOT) 51 U/L (5-34); Albumin 2.1 g/dL (3.4-4.8); Alkaline Phosphatase 140 U/L (40-110); Anion Gap 10 mmol/L (10-20); BUN (Urea Nitrogen) 17 mg/dL (8.4-25.7); Bilirubin, Total 0.4 mg/dL (0.2-1.2); Calc. Creatinine Clearance 102 mL/min (70-130); Calcium 8.4 mg/dL (7.8-10.44); Carbon Dioxide 23 mmol/L (23-31); Chloride 99 mmol/L (98-107); Estimated GFR 110; Globulin 4.1 g/dL (2.4-3.5); Glucose 98 mg/dL (80-115); Magnesium 1.8 mg/dL (1.6-2.6); Potassium 4.2 mmol/L (3.5-5.1); Protein, Total 6.2 g/dL (5.8-8.1); Sodium 128 mmol/L (136-145)
[2024-10-17 06:26] LABS: Hematocrit 34.5 % (42.0-52.0); Hemoglobin 11.4 g/dL (14.0-18.0); Mean Corpuscular Hemoglobin 25.7 pg (27.0-31.0); Mean Corpuscular Volume 77.7 fL (78.0-98.0); Mean Platelet Volume 9.2 fL (7.4-10.4); Platelet Count 219 10x3/uL (130-400); RBC Distribution Width 14.6 % (11.5-14.5); Red Blood Cell (RBC) Count 4.44 mill/uL (4.70-6.10)
[2024-10-17 07:42] LABS: Band 1 % (5-11); Eosinophils 2 % (0-10); Large Platelets 8.9 % (0-5); Lymphocytes 57 % (21-51); Microcytosis SLIGHT = 6-15 cells HPF (0-5); Monocytes 26 % (0-10); Neutrophil 13 % (42-75); Platelet Adequacy Comment Platelets Normal; Polychromasia MODERATE = 3-4 cells HPF (0-2); Reactive Lymphocytes 1 % (0-10); Vacuoles SLIGHT
[2024-10-17 20:57] LABS: Anion Gap 13 mmol/L (10-20); BUN (Urea Nitrogen) 17 mg/dL (8.4-25.7); Calc. Creatinine Clearance 106 mL/min (70-130); Calcium 8.6 mg/dL (7.8-10.44); Carbon Dioxide 24 mmol/L (23-31); Chloride 100 mmol/L (98-107); Estimated GFR 111; Glucose 105 mg/dL (80-115); Potassium 4.6 mmol/L (3.5-5.1); Sodium 132 mmol/L (136-145)
[2024-10-18 05:26] LABS: Hematocrit 38.5 % (42.0-52.0); Hemoglobin 12.6 g/dL (14.0-18.0); Mean Corpuscular HGB CONC 32.7 g/dL (32.0-36.0); Mean Corpuscular Hemoglobin 25.5 pg (27.0-31.0); Mean Corpuscular Volume 77.8 fL (78.0-98.0); Mean Platelet Volume 9.2 fL (7.4-10.4); Platelet Count 207 10x3/uL (130-400); RBC Distribution Width 14.6 % (11.5-14.5); Red Blood Cell (RBC) Count 4.95 mill/uL (4.70-6.10)
[2024-10-18 06:24] LABS: Band 2 % (5-11); Eosinophils 2 % (0-10); Lymphocytes 57 % (21-51); Microcytosis SLIGHT = 6-15 cells HPF (0-5); Monocytes 16 % (0-10); Neutrophil 12 % (42-75); Platelet Adequacy Comment Platelets Normal; Reactive Lymphocytes 11 % (0-10)
[2024-10-18 06:24] LABS: ALT (SGPT) 61 U/L (8-55); AST (SGOT) 46 U/L (5-34); Albumin 2.2 g/dL (3.4-4.8); Alkaline Phosphatase 150 U/L (40-110); Anion Gap 14 mmol/L (10-20); BUN (Urea Nitrogen) 15 mg/dL (8.4-25.7); Bilirubin, Total 0.4 mg/dL (0.2-1.2); Calc. Creatinine Clearance 99 mL/min (70-130); Calcium 8.8 mg/dL (7.8-10.44); Carbon Dioxide 23 mmol/L (23-31); Chloride 100 mmol/L (98-107); Estimated GFR 109; Globulin 4.4 g/dL (2.4-3.5); Glucose 103 mg/dL (80-115); Magnesium 2.1 mg/dL (1.6-2.6); Potassium 4.2 mmol/L (3.5-5.1); Protein, Total 6.6 g/dL (5.8-8.1); Sodium 133 mmol/L (136-145)
[2024-10-18] MEDS ORDERED: Bupivacaine 0.25% HCL 30 ML VIAL ONE (12:06)
[2024-10-18] MEDS ORDERED: EPINEPHrine 1 MG/ML VIAL ONE (12:06)
[2024-10-18] MEDS ORDERED: Lidocaine 2% PF 5 ML VIAL ONE (12:06)
[2024-10-18] MEDS ORDERED: Propofol 1,000 MG/100 ML VIAL IV ONE (12:13)
[2024-10-18] MEDS ORDERED: fentaNYL PF 100 MCG/2 ML SYRINGE ONE (12:19)
[2024-10-18] MEDS ORDERED: Midazolam HCl 2 mg/2 ml Vial ONE (12:19)
[2024-10-18] MEDS ORDERED: traMADol HCl 50 MG TAB PO PRN (13:38)
[2024-10-19 05:02] LABS: Hematocrit 35.4 % (42.0-52.0); Hemoglobin 11.4 g/dL (14.0-18.0); Mean Corpuscular HGB CONC 32.2 g/dL (32.0-36.0); Mean Corpuscular Hemoglobin 25.1 pg (27.0-31.0); Mean Platelet Volume 9.6 fL (7.4-10.4); Platelet Count 185 10x3/uL (130-400); RBC Distribution Width 14.7 % (11.5-14.5); Red Blood Cell (RBC) Count 4.54 mill/uL (4.70-6.10)
[2024-10-19 05:11] LABS: ALT (SGPT) 50 U/L (8-55); AST (SGOT) 38 U/L (5-34); Albumin 2.1 g/dL (3.4-4.8); Alkaline Phosphatase 129 U/L (40-110); Anion Gap 12 mmol/L (10-20); BUN (Urea Nitrogen) 18 mg/dL (8.4-25.7); Bilirubin, Total 0.4 mg/dL (0.2-1.2); Calc. Creatinine Clearance 94 mL/min (70-130); Calcium 8.6 mg/dL (7.8-10.44); Carbon Dioxide 23 mmol/L (23-31); Chloride 98 mmol/L (98-107); Estimated GFR 107; Globulin 4.1 g/dL (2.4-3.5); Glucose 104 mg/dL (80-115); Potassium 4.3 mmol/L (3.5-5.1); Protein, Total 6.2 g/dL (5.8-8.1); Sodium 129 mmol/L (136-145)
[2024-10-19 05:34] LABS: Band 21 % (5-11); Hypochromia SLIGHT = 6-15 cells HPF (0-5); Large Platelets 5.3 % (0-5); Lymphocytes 30 % (21-51); Monocytes 25 % (0-10); Neutrophil 19 % (42-75); Platelet Adequacy Comment Platelets Normal; Reactive Lymphocytes 4 % (0-10)
[2024-10-19] MEDS: Tolvaptan 15 MG TAB PO SCH (10:30)
[2024-10-19 16:01] LABS: Potassium 4.1 mmol/L (3.5-5.1); Sodium 132 mmol/L (136-145)
[2024-10-19 16:02] LABS: Anion Gap 11 mmol/L (10-20); BUN (Urea Nitrogen) 20 mg/dL (8.4-25.7); Calc. Creatinine Clearance 104 mL/min (70-130); Calcium 8.1 mg/dL (7.6-10.4); Carbon Dioxide 23 mmol/L (23-31); Chloride 102 mmol/L (98-107); Estimated GFR 111; Glucose 115 mg/dL (80-115)
[2024-10-19 16:05] LABS: Critical Call w/ Read Back DOWNTIME; White Blood Cell (WBC) Count 1.09 10x3/uL (4.8-10.8)
[2024-10-19 16:06] LABS: Hemoglobin 11.4 g/dL (14.0-18.0); Red Blood Cell (RBC) Count 4.35 mill/uL (4.70-6.10)
[2024-10-19 16:07] LABS: Mean Corpuscular HGB CONC 32.6 g/dL (32.0-36.0); Mean Corpuscular Hemoglobin 26.2 pg (27.0-31.0); Mean Corpuscular Volume 80.5 fL (78.0-98.0); Mean Platelet Volume 9.2 fL (7.4-10.4); Platelet Count 200 10x3/uL (130-400); RBC Distribution Width 14.6 % (11.5-14.5)
[2024-10-19 16:49] LABS: Band 2 % (5-11); Eosinophils 0 % (0-10); Lymphocytes 72 % (21-51); Monocytes 18 % (0-10); Neutrophil 8 % (42-75)
[2024-10-19 18:27] LABS: Anion Gap 13 mmol/L (10-20); BUN (Urea Nitrogen) 18 mg/dL (8.4-25.7); Calc. Creatinine Clearance 99 mL/min (70-130); Calcium 8.9 mg/dL (7.8-10.44); Carbon Dioxide 23 mmol/L (23-31); Chloride 101 mmol/L (98-107); Estimated GFR 109; Glucose 92 mg/dL (80-115); Potassium 4.5 mmol/L (3.5-5.1); Sodium 132 mmol/L (136-145)
[2024-10-19] MEDS: Nitrofurantoin Monohyd/M-Cryst 100 MG CAP PO SCH (21:04)
[2024-10-20 05:18] LABS: Hematocrit 38.7 % (42.0-52.0); Hemoglobin 12.6 g/dL (14.0-18.0); Mean Corpuscular HGB CONC 32.6 g/dL (32.0-36.0); Mean Corpuscular Hemoglobin 25.4 pg (27.0-31.0); Mean Corpuscular Volume 77.9 fL (78.0-98.0); Mean Platelet Volume 9.8 fL (7.4-10.4); Platelet Count 176 10x3/uL (130-400); RBC Distribution Width 14.6 % (11.5-14.5); Red Blood Cell (RBC) Count 4.97 mill/uL (4.70-6.10)
[2024-10-20 05:30] LABS: ALT (SGPT) 54 U/L (8-55); AST (SGOT) 47 U/L (5-34); Albumin 2.3 g/dL (3.4-4.8); Alkaline Phosphatase 138 U/L (40-110); Anion Gap 13 mmol/L (10-20); BUN (Urea Nitrogen) 15 mg/dL (8.4-25.7); Bilirubin, Total 0.4 mg/dL (0.2-1.2); Calc. Creatinine Clearance 99 mL/min (70-130); Calcium 8.9 mg/dL (7.8-10.44); Carbon Dioxide 22 mmol/L (23-31); Chloride 101 mmol/L (98-107); Estimated GFR 109; Globulin 4.4 g/dL (2.4-3.5); Glucose 99 mg/dL (80-115); Magnesium 2.2 mg/dL (1.6-2.6); Potassium 4.4 mmol/L (3.5-5.1); Protein, Total 6.7 g/dL (5.8-8.1); Sodium 132 mmol/L (136-145)
[2024-10-20 05:40] LABS: Band 17 % (5-11); Hypochromia SLIGHT = 6-15 cells HPF (0-5); Large Platelets 12.5 % (0-5); Lymphocytes 63 % (21-51); Microcytosis SLIGHT = 6-15 cells HPF (0-5); Monocytes 4 % (0-10); Platelet Adequacy Comment Platelets Normal; Polychromasia SLIGHT = 2-3 cells HPF (0-2); Reactive Lymphocytes 13 % (0-10)
[2024-10-20] MEDS: Tolvaptan 15 MG TAB PO SCH (08:08)
[2024-10-20] MEDS ORDERED: Iopamidol-370 76% 500 ML MDV (1 ML CHARGE) ONE (11:03)
[2024-10-21 04:58] LABS: Hematocrit 37.3 % (42.0-52.0); Mean Corpuscular HGB CONC 32.2 g/dL (32.0-36.0); Mean Corpuscular Hemoglobin 25.1 pg (27.0-31.0); Mean Platelet Volume 10.1 fL (7.4-10.4); Platelet Count 183 10x3/uL (130-400); RBC Distribution Width 14.7 % (11.5-14.5); Red Blood Cell (RBC) Count 4.78 mill/uL (4.70-6.10)
[2024-10-21 05:04] LABS: ALT (SGPT) 56 U/L (8-55); AST (SGOT) 54 U/L (5-34); Albumin 2.3 g/dL (3.4-4.8); Alkaline Phosphatase 134 U/L (40-110); Anion Gap 14 mmol/L (10-20); BUN (Urea Nitrogen) 16 mg/dL (8.4-25.7); Bilirubin, Total 0.3 mg/dL (0.2-1.2); Calc. Creatinine Clearance 93 mL/min (70-130); Calcium 8.7 mg/dL (7.8-10.44); Carbon Dioxide 25 mmol/L (23-31); Chloride 98 mmol/L (98-107); Estimated GFR 107; Globulin 4.2 g/dL (2.4-3.5); Glucose 132 mg/dL (80-115); Magnesium 2.1 mg/dL (1.6-2.6); Potassium 3.8 mmol/L (3.5-5.1); Protein, Total 6.5 g/dL (5.8-8.1); Sodium 133 mmol/L (136-145)
[2024-10-21 05:30] LABS: Band 5 % (5-11); Hypochromia SLIGHT = 6-15 cells HPF (0-5); Large Platelets 7.3 % (0-5); Lymphocytes 51 % (21-51); Microcytosis SLIGHT = 6-15 cells HPF (0-5); Monocytes 20 % (0-10); Neutrophil 15 % (42-75); Platelet Adequacy Comment Platelets Normal; Polychromasia SLIGHT = 2-3 cells HPF (0-2); Reactive Lymphocytes 10 % (0-10)
[2024-10-21] MEDS: Sodium Chloride 1 GM TAB PO SCH (10:09)
[2024-10-22 05:16] LABS: Anion Gap 10 mmol/L (10-20); BUN (Urea Nitrogen) 13 mg/dL (8.4-25.7); Calc. Creatinine Clearance 114 mL/min (70-130); Calcium 8.5 mg/dL (7.8-10.44); Carbon Dioxide 25 mmol/L (23-31); Chloride 101 mmol/L (98-107); Estimated GFR 114; Glucose 95 mg/dL (80-115); Potassium 4.3 mmol/L (3.5-5.1); Sodium 132 mmol/L (136-145)
[2024-10-22] MEDS ORDERED: Phenazopyridine HCl 100 MG TAB PO PRN (07:14)
[2024-10-22] MEDS: Cefepime 2 GM in Sodium Chloride 0.9% 100 ML IVPB SCH (08:50)
[2024-10-22 12:52] LABS: Bacteria/HPF None Seen HPF (None Seen); Bilirubin Negative (Negative); Blood, Urine 2+ (Negative); CAUTI Indications for Culture Immunosuppressed; Clarity Clear (Clear); Glucose, Urine (Dipstick) Normal (Negative); Ketone, Urine Negative (Negative); Leukocyte Negative Leu/uL (Negative); Nitrite Negative (Negative); Protein, Urine (Dipstick) 20 mg/dL (Neg-Trace); Specific Gravity, Urine 1.009 (1.002-1.036); Squamous Epithelial 0-3 HPF (0-3); Urobilinogen Normal mg/dL (Less than 2); WBC/HPF 0-3 HPF (0-3)
[2024-10-22 12:53] LABS: Urine Culture Reflex Yes Yes
[2024-10-23 04:50] LABS: Anion Gap 11 mmol/L (10-20); BUN (Urea Nitrogen) 14 mg/dL (8.4-25.7); Calc. Creatinine Clearance 110 mL/min (70-130); Calcium 8.3 mg/dL (7.8-10.44); Carbon Dioxide 24 mmol/L (23-31); Chloride 101 mmol/L (98-107); Estimated GFR 113; Glucose 94 mg/dL (80-115); Potassium 4.1 mmol/L (3.5-5.1); Sodium 132 mmol/L (136-145)
[2024-10-23 07:30] LABS: Chloride 98 mmol/L (98-107); Potassium 4.5 mmol/L (3.5-5.1); Sodium 130 mmol/L (136-145)
[2024-10-23 07:31] LABS: Anion Gap 13 mmol/L (10-20); BUN (Urea Nitrogen) 18 mg/dL (8.4-25.7); Calc. Creatinine Clearance 98 mL/min (70-130); Calcium 8.4 mg/dL (7.6-10.4); Carbon Dioxide 24 mmol/L (23-31); Estimated GFR 108; Glucose 101 mg/dL (80-115); Hemoglobin 12.2 g/dL (14.0-18.0); Mean Corpuscular Hemoglobin 25.8 pg (27.0-31.0); Mean Corpuscular Volume 78.2 fL (78.0-98.0); Mean Platelet Volume 9.5 fL (7.4-10.4); Platelet Count 186 10x3/uL (130-400); RBC Distribution Width 14.6 % (11.5-14.5); Red Blood Cell (RBC) Count 4.73 mill/uL (4.70-6.10)
[2024-10-23 07:32] LABS: %Neutrophils 3.4 % (42.0-75.0)
[2024-10-23 07:33] LABS: #Basophils Less than 0.03 10x3/uL (0.0-0.2); #Eosinophils Less than 0.03 10x3/uL (0.0-0.7); %Basophils 0.6 % (0.0-1.0); %Eosinophils 0.6 % (0.0-10.0); %Lymphocytes 76.8 % (21.0-51.0); %Monocytes 18.6 % (0.0-10.0)
[2024-10-23 07:34] LABS: Anion Gap 13 mmol/L (10-20); BUN (Urea Nitrogen) 20 mg/dL (8.4-25.7); Calc. Creatinine Clearance 89 mL/min (70-130); Calcium 8.2 mg/dL (7.6-10.4); Carbon Dioxide 22 mmol/L (23-31); Chloride 101 mmol/L (98-107); Estimated GFR 105; Glucose 122 mg/dL (80-115); Hematocrit 37.8 % (42.0-52.0); Hemoglobin 12.2 g/dL (14.0-18.0); Potassium 5.5 mmol/L (3.5-5.1); Red Blood Cell (RBC) Count 4.71 mill/uL (4.70-6.10); Sodium 130 mmol/L (136-145)
[2024-10-23 07:35] LABS: Band 4 % (5-11); Lymphocytes 58 % (21-51); Manual Diff?? YES; Mean Corpuscular HGB CONC 32.3 g/dL (32.0-36.0); Mean Corpuscular Hemoglobin 25.9 pg (27.0-31.0); Mean Corpuscular Volume 80.3 fL (78.0-98.0); Mean Platelet Volume 8.7 fL (7.4-10.4); Monocytes 26 % (0-10); Neutrophil 8 % (42-75); Platelet Count 176 10x3/uL (130-400); Polychromasia SLIGHT = 2-3 cells (100X) (0-2/hpf); RBC Distribution Width 14.8 % (11.5-14.5); Reactive Lymphocytes 4 % (0-10)
[2024-10-23 07:36] LABS: Large Platelets 6.8 (None Seen); Platelet Adequacy Comment Platelets Normal
[2024-10-23 09:13] LABS: HBsAg Index 0.26 S/CO (0-0.99); HIV (1/2) Antibody/Antigen NONREACTIVE (NonReactive); HIV 1/2 INDEX 0.05 S/CO (<1.00); Hep A IgM AB NONREACTIVE (NonReactive); Hep A IgM S/CO 0.15 S/CO (0-0.79); Hep B Core IgM Index 0.17 S/CO (0-0.79); Hep B Surf Ag NONREACTIVE S/CO (NonReactive); Hep C IgG Ab NONREACTIVE S/CO (NonReactive); Hep C Index 0.14 S/CO (0-0.79); Hepatitis B Core IgM Abs NONREACTIVE S/CO (NonReactive)
[2024-10-24 05:37] LABS: Anion Gap 12 mmol/L (10-20); BUN (Urea Nitrogen) 15 mg/dL (8.4-25.7); Calc. Creatinine Clearance 117 mL/min (70-130); Calcium 8.2 mg/dL (7.8-10.44); Carbon Dioxide 23 mmol/L (23-31); Chloride 101 mmol/L (98-107); Estimated GFR 115; Glucose 90 mg/dL (80-115); Potassium 4.6 mmol/L (3.5-5.1); Sodium 131 mmol/L (136-145)
[2024-10-24 05:47] LABS: Hematocrit 32.8 % (42.0-52.0); Hemoglobin 10.6 g/dL (14.0-18.0); Mean Corpuscular HGB CONC 32.3 g/dL (32.0-36.0); Mean Corpuscular Hemoglobin 25.3 pg (27.0-31.0); Mean Corpuscular Volume 78.3 fL (78.0-98.0); Mean Platelet Volume 9.4 fL (7.4-10.4); Platelet Count 159 10x3/uL (130-400); RBC Distribution Width 14.9 % (11.5-14.5); Red Blood Cell (RBC) Count 4.19 mill/uL (4.70-6.10)
[2024-10-24 07:41] LABS: Band 1 % (5-11); Eosinophils 1 % (0-10); Lymphocytes 75 % (21-51); Microcytosis SLIGHT = 6-15 cells HPF (0-5); Monocytes 10 % (0-10); Neutrophil 3 % (42-75); Platelet Adequacy Comment Platelets Normal; Polychromasia SLIGHT = 2-3 cells HPF (0-2); Reactive Lymphocytes 10 % (0-10)
[2024-10-24 09:07] LABS: Hematocrit 31.5 % (42.0-52.0); Hemoglobin 10.3 g/dL (14.0-18.0); Mean Corpuscular HGB CONC 32.7 g/dL (32.0-36.0); Mean Corpuscular Hemoglobin 25.7 pg (27.0-31.0); Mean Corpuscular Volume 78.6 fL (78.0-98.0); Mean Platelet Volume 9.7 fL (7.4-10.4); Platelet Count 158 10x3/uL (130-400); RBC Distribution Width 14.9 % (11.5-14.5); Red Blood Cell (RBC) Count 4.01 mill/uL (4.70-6.10)
[2024-10-25 07:03] LABS: Hematocrit 34.5 % (42.0-52.0); Hemoglobin 11.2 g/dL (14.0-18.0); Mean Corpuscular HGB CONC 32.5 g/dL (32.0-36.0); Mean Corpuscular Hemoglobin 25.4 pg (27.0-31.0); Mean Corpuscular Volume 78.2 fL (78.0-98.0); Mean Platelet Volume 9.5 fL (7.4-10.4); Platelet Count 151 10x3/uL (130-400); RBC Distribution Width 15.2 % (11.5-14.5); Red Blood Cell (RBC) Count 4.41 mill/uL (4.70-6.10)
[2024-10-25 07:20] LABS: Anion Gap 11 mmol/L (10-20); BUN (Urea Nitrogen) 17 mg/dL (8.4-25.7); Calc. Creatinine Clearance 114 mL/min (70-130); Calcium 8.4 mg/dL (7.8-10.44); Carbon Dioxide 23 mmol/L (23-31); Chloride 101 mmol/L (98-107); Estimated GFR 114; Glucose 86 mg/dL (80-115); Potassium 4.4 mmol/L (3.5-5.1); Sodium 131 mmol/L (136-145)
[2024-10-25 08:20] LABS: Band 3 % (5-11); Eosinophils 3 % (0-10); Lymphocytes 62 % (21-51); Monocytes 21 % (0-10); Neutrophil 3 % (42-75); Platelet Adequacy Comment Platelets Normal; Polychromasia SLIGHT = 2-3 cells HPF (0-2); Reactive Lymphocytes 10 % (0-10); Spherocytes MODERATE= 6-15 cells HPF (None Seen)
[2024-10-25 17:03] VITALS: BP 117/74; TEMP 99
== END 2024-10-25 15:50 | DRG 668 ==
LOC: 2NO 23:33 → IMCU/EMU 10-11 14:00 → MSONC 10-13 18:57
PROVIDERS: ADMIT Internal Medicine; ATTEND Internal Medicine
PROC: 0TBC8ZZ Excision of Bladder Neck, Via Natural or Artificial Opening Endoscopic (ICD-10-PCS; principal; 2024-10-10)
PROC: 0T9B70Z Drainage of Bladder with Drainage Device, Via Natural or Artificial Opening (ICD-10-PCS; 2024-10-10)
PROC: 02HV33Z Insertion of Infusion Device into Superior Vena Cava, Percutaneous Approach (ICD-10-PCS; 2024-10-18)
PROC: 0JH60WZ Insertion of Totally Implantable Vascular Access Device into Chest Subcutaneous Tissue and Fascia, Open Approach (ICD-10-PCS; 2024-10-18)
DX: C67.5 Malignant neoplasm of bladder neck (principal); A41.51 Sepsis due to Escherichia coli [E. coli]; E43 Unspecified severe protein-calorie malnutrition; N39.0 Urinary tract infection, site not specified; E22.2 Syndrome of inappropriate secretion of antidiuretic hormone; Z16.23 Resistance to quinolones and fluoroquinolones; E87.20 Acidosis, unspecified; Z68.1 Body mass index [BMI] 19.9 or less, adult; D70.1 Agranulocytosis secondary to cancer chemotherapy; D70.9 Neutropenia, unspecified; R50.81 Fever presenting with conditions classified elsewhere; F12.10 Cannabis abuse, uncomplicated; R33.9 Retention of urine, unspecified; F41.9 Anxiety disorder, unspecified; E78.5 Hyperlipidemia, unspecified; J44.9 Chronic obstructive pulmonary disease, unspecified; G62.9 Polyneuropathy, unspecified; F32.A Depression, unspecified; F17.210 Nicotine dependence, cigarettes, uncomplicated; T45.1X5A Adverse effect of antineoplastic and immunosuppressive drugs, initial encounter; E87.8 Other disorders of electrolyte and fluid balance, not elsewhere classified; R00.0 Tachycardia, unspecified; N40.0 Benign prostatic hyperplasia without lower urinary tract symptoms; K80.20 Calculus of gallbladder without cholecystitis without obstruction; Z91.51 Personal history of suicidal behavior; Z79.899 Other long term (current) drug therapy; Z71.6 Tobacco abuse counseling
CPT/HCPCS: 0241U; 36415; 36416; 71045; 71046; 71260; 74178; 76705; 78306; 80048; 80053; 80074; 80076; 81001; 83605; 83690; 83735; 83930; 83935; 84300; 84443; 85025; 85060; 85610; 85730; 86850; 86900; 86901; 87040; 87081; 87086; 87389; 87633; 88307; 88341; 88342; 93306; 94640; A4333; A9503; C1788; J0171; J0665; J0692; J0696; J1100; J1642; J1650; J2250; J2272; J2405; J2543; J2704; J3475; J3490; J7030; J7620; Q9967

== ENCOUNTER 2024-11-02 12:44 | Inpatient (IN) | payer OTHER ==
[2024-11-02] MEDS ORDERED: Sodium Chloride 0.9% 100 ML ONE (13:14)
[2024-11-02] MEDS ORDERED: Cefepime 2 GM VIAL ONE (13:14)
[2024-11-02 13:31] LABS: Bacteria/HPF None Seen HPF (None Seen); Bilirubin Negative (Negative); Blood, Urine Trace (Negative); CAUTI Indications for Culture Fever or rigors; Clarity Clear (Clear); Glucose, Urine (Dipstick) Normal (Negative); Ketone, Urine Negative (Negative); Leukocyte Negative Leu/uL (Negative); Nitrite Negative (Negative); Protein, Urine (Dipstick) 50 mg/dL (Neg-Trace); RBC/HPF 0-3 HPF (0-3); Specific Gravity, Urine 1.029 (1.002-1.036); Squamous Epithelial 0-3 HPF (0-3); pH, Urine 5.5 (5.0-9.0)
[2024-11-02 13:32] LABS: Urine Culture Reflex No No
[2024-11-02 13:34] LABS: Actual Bicarbonate (HCO3v) 24.7 mEq/L (22-28); Analyzer IN Cardio ER; Base Excess 2.2 mEq/L (-2.0 to +3.0); Chloride (VBG) 95 mmol/L (98-106); Hematocrit-VBG 26 % (42.0-52.0); Hemoglobin (Hb) 8.8 g/dL (13.1-17.2); Potassium (VBG) 4.58 mmol/L (3.70-5.30); Sodium 126 mmol/L (133-146); pH (venous) 7.529 (7.32-7.43)
[2024-11-02 13:35] LABS: ALT (SGPT) 68 U/L (8-55); AST (SGOT) 62 U/L (5-34); Albumin 2.2 g/dL (3.4-4.8); Alkaline Phosphatase 210 U/L (40-110); Anion Gap 13 mmol/L (10-20); BUN (Urea Nitrogen) 15 mg/dL (8.4-25.7); Bilirubin, Total 0.4 mg/dL (0.2-1.2); Calc. Creatinine Clearance 0 mL/min (70-130); Calcium 8.4 mg/dL (7.8-10.44); Carbon Dioxide 23 mmol/L (23-31); Chloride 96 mmol/L (98-107); Estimated GFR 109; Globulin 4.4 g/dL (2.4-3.5); Glucose 116 mg/dL (80-115); Lipase 23 U/L (8-78); Magnesium 1.9 mg/dL (1.6-2.6); Potassium 4.6 mmol/L (3.5-5.1); Protein, Total 6.6 g/dL (5.8-8.1); Sodium 127 mmol/L (136-145)
[2024-11-02 13:42] LABS: Troponin I Less than 0.010 ng/mL (< 0.028)
[2024-11-02 14:22] LABS: Hematocrit 38.1 % (42.0-52.0); Hemoglobin 12.7 g/dL (14.0-18.0); Mean Corpuscular HGB CONC 33.3 g/dL (32.0-36.0); Mean Corpuscular Volume 75.1 fL (78.0-98.0); Mean Platelet Volume 9.1 fL (7.4-10.4); Platelet Count 201 10x3/uL (130-400); RBC Distribution Width 15.1 % (11.5-14.5); Red Blood Cell (RBC) Count 5.07 mill/uL (4.70-6.10)
[2024-11-02 14:34] LABS: Anisocytosis SLIGHT = 6-15 cells HPF (0-5); Large Platelets 7.8 % (0-5); Lymphocytes 61 % (21-51); Microcytosis SLIGHT = 6-15 cells HPF (0-5); Monocytes 14 % (0-10); Neutrophil 3 % (42-75); Ovalocytes SLIGHT = 2-5 cells HPF (0-1); Platelet Adequacy Comment Platelets Normal; Polychromasia SLIGHT = 2-3 cells HPF (0-2); Reactive Lymphocytes 22 % (0-10)
[2024-11-02] MEDS ORDERED: hydrALAZINE 20 MG/ML VIAL SLOW IVP PRN (16:27)
[2024-11-02] MEDS ORDERED: Ondansetron ODT 4 MG TAB PO PRN (16:27)
[2024-11-02] MEDS ORDERED: Ondansetron PF 4 MG/2 ML Vial IVP PRN (16:27)
[2024-11-02 16:41] VITALS: BMI 16.4
[2024-11-02] MEDS: Vancomycin 1 GM in Premix 1 BAG IVPB SCH (17:20)
[2024-11-02] MEDS: Sodium Chloride 0.9% 1,000 ML IV SCH (17:20)
[2024-11-02] MEDS: Folic Acid 1 MG TAB PO SCH (21:11)
[2024-11-02] MEDS: Acetaminophen 325 MG TAB PO PRN (23:58)
[2024-11-03] MEDS: Cefepime 1 GM in Sodium Chloride 0.9% 100 ML IVPB SCH (00:57)
[2024-11-03 04:38] LABS: Hematocrit 30.5 % (42.0-52.0); Hemoglobin 9.9 g/dL (14.0-18.0); Mean Corpuscular HGB CONC 32.5 g/dL (32.0-36.0); Mean Corpuscular Hemoglobin 24.9 pg (27.0-31.0); Mean Corpuscular Volume 76.8 fL (78.0-98.0); Mean Platelet Volume 8.9 fL (7.4-10.4); Platelet Count 140 10x3/uL (130-400); RBC Distribution Width 15.1 % (11.5-14.5); Red Blood Cell (RBC) Count 3.97 mill/uL (4.70-6.10)
[2024-11-03 05:07] LABS: Anion Gap 9 mmol/L (10-20); BUN (Urea Nitrogen) 11 mg/dL (8.4-25.7); Calc. Creatinine Clearance 109 mL/min (70-130); Calcium 7.9 mg/dL (7.8-10.44); Carbon Dioxide 21 mmol/L (23-31); Chloride 103 mmol/L (98-107); Estimated GFR 116; Glucose 99 mg/dL (80-115); Potassium 3.4 mmol/L (3.5-5.1); Sodium 130 mmol/L (136-145)
[2024-11-03 05:10] LABS: Vancomycin, Random 6.1 ug/mL (See Comment)
[2024-11-03 05:13] LABS: Band 2 % (5-11); Eosinophils 5 % (0-10); Hypochromia SLIGHT = 6-15 cells HPF (0-5); Large Platelets 2.4 % (0-5); Lymphocytes 58 % (21-51); Monocytes 18 % (0-10); Neutrophil 5 % (42-75); Nucleated RBC (Manual Ct) 5 % (0); Platelet Adequacy Comment Platelets Normal; Polychromasia SLIGHT = 2-3 cells HPF (0-2); Reactive Lymphocytes 10 % (0-10); Smudge Cells 1.2 %
[2024-11-03] MEDS: Finasteride 5 MG TAB PO SCH (08:33)
[2024-11-03] MEDS: Tamsulosin HCl 0.4 MG CAP PO SCH (08:33)
[2024-11-03 11:32] VITALS: BMI 16.4
[2024-11-03] MEDS: Potassium Chloride 20 MEQ TAB PO SCH (12:19)
[2024-11-03] MEDS: Cefepime 2 GM in Sodium Chloride 0.9% 100 ML IVPB SCH (12:20)
[2024-11-03] MEDS: Vancomycin 1 GM in Premix 1 BAG IVPB SCH (17:14)
[2024-11-03] MEDS ORDERED: VANCOMYCIN 1.25 GM/250 ML BAG 1.25 GM in Premix 1 BAG IVPB SCH (18:00)
[2024-11-03] MEDS: HYDROcodone/Acetaminophen 5/325 mg Tablet PO PRN (20:36)
[2024-11-04] MEDS: HYDROcodone/Acetaminophen 10/325 mg Tablet PO PRN (03:06)
[2024-11-04 04:46] LABS: Hematocrit 29.3 % (42.0-52.0); Hemoglobin 9.4 g/dL (14.0-18.0); Mean Corpuscular HGB CONC 32.1 g/dL (32.0-36.0); Mean Corpuscular Hemoglobin 24.9 pg (27.0-31.0); Mean Corpuscular Volume 77.5 fL (78.0-98.0); Mean Platelet Volume 9.5 fL (7.4-10.4); Platelet Count 130 10x3/uL (130-400); RBC Distribution Width 15.1 % (11.5-14.5); Red Blood Cell (RBC) Count 3.78 mill/uL (4.70-6.10)
[2024-11-04 05:11] LABS: Anion Gap 10 mmol/L (10-20); BUN (Urea Nitrogen) 10 mg/dL (8.4-25.7); Calc. Creatinine Clearance 125 mL/min (70-130); Carbon Dioxide 19 mmol/L (23-31); Chloride 104 mmol/L (98-107); Estimated GFR 121; Glucose 97 mg/dL (80-115); Potassium 3.7 mmol/L (3.5-5.1); Sodium 129 mmol/L (136-145)
[2024-11-04 05:15] LABS: Band 4 % (5-11); Eosinophils 2 % (0-10); Hypochromia SLIGHT = 6-15 cells HPF (0-5); Large Platelets 11.5 % (0-5); Lymphocytes 70 % (21-51); Microcytosis SLIGHT = 6-15 cells HPF (0-5); Monocytes 18 % (0-10); Neutrophil 4 % (42-75); Platelet Adequacy Comment Platelets Normal; Polychromasia SLIGHT = 2-3 cells HPF (0-2); Reactive Lymphocytes 2 % (0-10); Smudge Cells 37.5 %
[2024-11-04 05:59] LABS: Calcium 7.7 mg/dL (7.8-10.44)
[2024-11-05 05:15] LABS: Hematocrit 29.4 % (42.0-52.0); Hemoglobin 9.5 g/dL (14.0-18.0); Mean Corpuscular HGB CONC 32.3 g/dL (32.0-36.0); Mean Corpuscular Hemoglobin 24.5 pg (27.0-31.0); Mean Platelet Volume 9.8 fL (7.4-10.4); Platelet Count 137 10x3/uL (130-400); Red Blood Cell (RBC) Count 3.87 mill/uL (4.70-6.10)
[2024-11-05 05:27] LABS: Anion Gap 10 mmol/L (10-20); BUN (Urea Nitrogen) 8 mg/dL (8.4-25.7); Calc. Creatinine Clearance 138 mL/min (70-130); Calcium 7.5 mg/dL (7.8-10.44); Carbon Dioxide 21 mmol/L (23-31); Chloride 102 mmol/L (98-107); Estimated GFR 125; Glucose 85 mg/dL (80-115); Potassium 3.7 mmol/L (3.5-5.1); Sodium 129 mmol/L (136-145)
[2024-11-05 05:45] LABS: Eosinophils 5 % (0-10); Hypochromia SLIGHT = 6-15 cells HPF (0-5); Large Platelets 4.8 % (0-5); Lymphocytes 67 % (21-51); Microcytosis SLIGHT = 6-15 cells HPF (0-5); Monocytes 26 % (0-10); Neutrophil 2 % (42-75); Platelet Adequacy Comment Platelets Normal; Polychromasia SLIGHT = 2-3 cells HPF (0-2); Smudge Cells 71.4 %
[2024-11-05] MEDS: Megestrol Acetate 800 MG/20 ML UDCUP PO SCH (17:37)
[2024-11-05] MEDS: Mirtazapine 15 MG TAB PO SCH (20:12)
[2024-11-06 05:18] LABS: Hematocrit 31.9 % (42.0-52.0); Hemoglobin 10.3 g/dL (14.0-18.0); Mean Corpuscular HGB CONC 32.3 g/dL (32.0-36.0); Mean Corpuscular Hemoglobin 24.5 pg (27.0-31.0); Mean Platelet Volume 9.3 fL (7.4-10.4); Platelet Count 130 10x3/uL (130-400); RBC Distribution Width 15.2 % (11.5-14.5)
[2024-11-06 05:26] LABS: Anion Gap 10 mmol/L (10-20); BUN (Urea Nitrogen) 10 mg/dL (8.4-25.7); Calc. Creatinine Clearance 131 mL/min (70-130); Carbon Dioxide 22 mmol/L (23-31); Chloride 105 mmol/L (98-107); Estimated GFR 123; Glucose 101 mg/dL (80-115); Iron 17 ug/dL (65-175); Iron Binding Capacity, Total 114 mcg/dL (261-462); Potassium 3.9 mmol/L (3.5-5.1); Sodium 133 mmol/L (136-145)
[2024-11-06 05:50] LABS: Hypochromia SLIGHT = 6-15 cells (100X) (0-5/hpf); Lymphocytes 88 % (21-51); Microcytosis SLIGHT = 6-15 cells (100X) (0-5/hpf); Neutrophil 12 % (42-75); Plasma Cells 0 % (0-0); Platelet Adequacy Comment Appears Adequate; Total Cell Count 25
[2024-11-06 07:50] LABS: Ferritin 2771.51 ng/mL (22-322)
[2024-11-06] MEDS: Pantoprazole 40 MG VIAL IVP SCH (09:06)
[2024-11-06] MEDS: Megestrol Acetate 800 MG/20 ML UDCUP PO SCH (09:06)
[2024-11-06] MEDS: Acetaminophen 500 MG TAB PO SCH (15:50)
[2024-11-06] MEDS: Dexamethasone 1 MG TAB PO SCH (15:50)
[2024-11-07 05:28] LABS: Hematocrit 32.4 % (42.0-52.0); Hemoglobin 10.5 g/dL (14.0-18.0); Mean Corpuscular HGB CONC 32.4 g/dL (32.0-36.0); Mean Corpuscular Hemoglobin 24.8 pg (27.0-31.0); Mean Corpuscular Volume 76.4 fL (78.0-98.0); Platelet Count 121 10x3/uL (130-400); RBC Distribution Width 15.5 % (11.5-14.5); Red Blood Cell (RBC) Count 4.24 mill/uL (4.70-6.10)
[2024-11-07 06:01] LABS: Band 10 % (5-11); Large Platelets 16.7 % (0-5); Lymphocytes 73 % (21-51); Monocytes 17 % (0-10); Nucleated RBC (Manual Ct) 3 % (0); Platelet Adequacy Comment Platelets Decreased; Polychromasia SLIGHT = 2-3 cells HPF (0-2)
[2024-11-07 06:27] LABS: #Basophils Less than 0.03 10x3/uL (0.0-0.2); #Eosinophils Less than 0.03 10x3/uL (0.0-0.7); %Lymphocytes 75.3 % (21.0-51.0); %Monocytes 18.6 % (0.0-10.0); %Neutrophils 5.1 % (42.0-75.0)
[2024-11-07] MEDS: oxyCODONE 5 MG TAB PO PRN (22:22)
[2024-11-08] MEDS: oxyCODONE 5 MG TAB PO PRN (12:19)
[2024-11-09 22:06] VITALS: BP 136/76; TEMP 97.7
== END 2024-11-10 02:45 | disposition hospice, home (50) | DRG 698 ==
LOC: ERS 12:44 → MSONC 14:50
PROVIDERS: ADMIT Internal Medicine; ATTEND Internal Medicine
DX: T83.511A Infection and inflammatory reaction due to indwelling urethral catheter, initial encounter (principal); E43 Unspecified severe protein-calorie malnutrition; E22.2 Syndrome of inappropriate secretion of antidiuretic hormone; D70.9 Neutropenia, unspecified; N39.0 Urinary tract infection, site not specified; C67.9 Malignant neoplasm of bladder, unspecified; J44.9 Chronic obstructive pulmonary disease, unspecified; I10 Essential (primary) hypertension; E78.5 Hyperlipidemia, unspecified; F17.210 Nicotine dependence, cigarettes, uncomplicated; Z79.899 Other long term (current) drug therapy; N40.0 Benign prostatic hyperplasia without lower urinary tract symptoms; Z51.5 Encounter for palliative care; F32.9 Major depressive disorder, single episode, unspecified; M35.9 Systemic involvement of connective tissue, unspecified; D50.9 Iron deficiency anemia, unspecified; Z66 Do not resuscitate
CPT/HCPCS: 36415; 51702; 71045; 80048; 80053; 80202; 81001; 82607; 82728; 82805; 83540; 83550; 83605; 83690; 83735; 84484; 85025; 87040; 87077; 87086; 87186; 87428; 93005; 96374; J0692; J2470; J3370; J7030; J8540